=== PATIENT | male | born 1945 | race Caucasian/White ===

== ENCOUNTER → 2017-04-10 | Outpatient (CLI) | payer OTHER ==
[2016-02-20 17:14] VITALS: BP 160/73
--- NOTE | 2017-04-10 16:53 | VAS ---
HISTORY: Claudication Study: Bilateral ankle-brachial index Comparison: None Findings: Segmental pressure and waveform analysis of the right and left lower extremity were obtained from the common femoral artery to tibial vasculature before and after exercise. The right and left lower ext remities demonstrate multiphasic waveforms with normal segmental pressures. An MICHELA of 0.95-1.01 is o bserved on the right. MICHELA of 0.89-0.98 is observed on the left. No significant pressure drop was obs erved after exercise. IMPRESSION: Normal bilateral ABIs. Reported By:
== END ==
LOC: RAD 13:24
PROVIDERS: ATTEND Obstetrics & Gynecology Obstetrics
DX: I70.219 Atherosclerosis of native arteries of extremities with intermittent claudication, unspecified extremity (principal)
CPT/HCPCS: 93923

== ENCOUNTER 2021-03-04 14:05 | Observation (INO) ==
[2021-03-04 14:09] VITALS: BMI 24.5
[2021-03-04] MEDS ORDERED: ADACEL or BOOSTRIX TDaP VACCINE IM ONE ×2 (14:28→14:36)
--- NOTE | 2021-03-04 14:37 | DR.GENAD ---
HPI Time Seen Time Seen by Provider: 03/04/21 14:28 PCP Primary Care Physician: DOE HPI Comment HPI Comment: pt hit head on end table last night Complaint/Symptoms Chief Complaint:: PATIENT CAME TO ER REPORTS FALLING AT HOME, SOB, AND DIZZINESS X 5 WEEKS. PATIENT HAS BEEN SEEN BY PCP FOR COMPLAINT OF DIZZINESS AND GIVEN RX. COVID-19 Coronavirus risk:travel/contact w/high risk person: No Has patient experienced Coronavirus symptoms: Yes Coronavirus symptoms experienced: Shortness of Breath Nurses notes reviewed Nurses Notes Review: Yes Source History Provided: Patient and EMS Mode of Arrival Mode of Arrival: EMS Timing Onset of Chief Complaint: 02/01/21 PMH PMH Past Medical History: Yes Past Medical History: Anxiety and Diabetes Past Surgical History: Yes Family History History of Family Medical Conditions: Yes Family Medical History: Diabetes Mellitus Social History Do you use any recreational Drugs:: No Travel Risk Coronavirus risk:travel/contact w/high risk person: No Has patient experienced Coronavirus symptoms: Yes Coronavirus symptoms experienced: Shortness of Breath Infectious screening In the last 2 months have you had wt loss of >10#?: NO Have you had fever, night sweats or hemotysis?: No Have you traveled outside the country in the last 6 months?: No Isolation: Standard ROS Review of Systems Constitutional: No Symptoms Reported Eyes: No Symptoms Reported ENTM: No Symptoms Reported Respiratoy: See HPI Cardiovascular: No Symptoms Reported Gastrointestinal/Abdominal: No Symptoms Reported Genitourinary: No Symptoms Reported Neurological: Headache Musculoskeletal: See HPI and Other (small forehead lac) Integumentary: No Symptoms Reported Hematologic/Lymphatic: No Symptoms Reported Endocrine: No Symptoms Reported Psychiatric: No Symptoms Reported All Other Systems: Reviewed and Negative PE Vital Signs Vitals: Temperature 98.2 F Pulse Rate 64 Respiratory Rate 20 Blood Pressure 98/52 O2 Sat by Pulse Oximetry 98 General Limitations: No Limitations General Appearance: Alert and In No Apparent Distress Head Head Exam: Normal Inspection Eyes Eye exam: Normal Appearance ENT ENT Exam: Normal Exam and Other (1 cm linear lac on right side of forehead) External Ear Exam: Normal External Inspection TM/Canal Exam: Bilateral: Normal Nose Exam: Normal Nose Exam Mouth Exam: Normal Inspection Throat Exam: Normal Inspection Neck Neck Exam: Normal Inspection, Full ROM and Trachea Midline; negative Tenderness Chest Chest Inspection: Normal Inspection Respiratory Respiratory Exam: Normal Lung Sounds Bilat Respiratory Exam: Bilateral: Clear to Auscultation Cardiovascular Cardiovascular Exam: Regular Rate and Normal Rhythm Abdominal Exam Abdominal Exam: Normal Inspection, Normal Bowel Sounds and Soft Extremities Extremities Exam: Normal Inspection Back Back Exam: Normal Inspection Neurologic Neurological Exam: Alert and Oriented X3 Psychiatric Psychiatric Exam: Normal Affect and Normal Mood Skin Skin Exam: Warm, Dry, Intact and Normal Color MDM Differential Diagnosis Differential Diagnosis: CHF, COPD COVID, CAD COURSE Treatment Treatment: will give tetnus, steri -strips, dyspnea work-up Reevaluation 1st: Unchanged 2nd: Unchanged (CHF with edema, will give lasix, discussed with hospitalist will admit) ROR Labs Reviewed Laboratory Results Reviewed?: Yes Result Diagrams: 03/04/21 14:44 03/04/21 14:44 Laboratory: WBC 7.4 X10^3/uL (3.6-10.0) 03/04/21 14:44 RBC 4.07 X10^6/uL (4.7-6.0) L 03/04/21 14:44 Hgb 13.0 g/dL (13.5-18.0) L 03/04/21 14:44 Hct 37.5 % (42.0-54.0) L 03/04/21 14:44 MCV 92.1 fL (80.0-100.0) 03/04/21 14:44 MCH 31.8 pg (27.0-34.0) 03/04/21 14:44 MCHC 34.6 g/dL (33.0-35.0) 03/04/21 14:44 RDW 13.3 % (11.6-16.5) 03/04/21 14:44 Plt Count 100 X10^3/uL (150.0-450.0) L 03/04/21 14:44 MPV 9.1 fL (7.4-11.0) 03/04/21 14:44 Neut % (Auto) 57.6 % (42.0-75.0) 03/04/21 14:44 Lymph % (Auto) 30.9 % (21.0-51.0) 03/04/21 14:44 [place] % (Auto) 6.6 % (0.0-13.0) 03/04/21 14:44 Eos % (Auto) 4.0 % (0.9-2.9) H 03/04/21 14:44 Baso % (Auto) 0.9 % (0.2-1.0) 03/04/21 14:44 Neut # (Auto) 4.3 x10^3/uL (2.2-4.8) 03/04/21 14:44 Lymph # (Auto) 2.3 X10^3/uL (1.3-2.9) 03/04/21 14:44 [place] # (Auto) 0.5 x10^3/uL (0.3-0.8) 03/04/21 14:44 Eos # (Auto) 0.3 x10^3/uL (0.0-0.2) H 03/04/21 14:44 Baso # (Auto) 0.1 X10^3/uL (0.0-0.1) 03/04/21 14:44 Absolute Nucleated RBC 0.1 /100WBC 03/04/21 14:44 PT 15.5 SECONDS (11.8-14.3) 03/04/21 14:44 INR Target Range - 03/04/21 14:44 INR 1.30 (0.8-1.3) 03/04/21 14:44 D-Dimer 0.60 ug/ml (0.0-0.57) H* 03/04/21 14:44 Sodium 145 mmol/L (136-145) 03/04/21 14:44 Corrected Sodium TNP 03/04/21 14:44 Potassium 4.1 mmol/L (3.5-5.1) 03/04/21 14:44 Chloride 113 mmol/L (98-107) H 03/04/21 14:44 Carbon Dioxide 25.4 mmol/L (21-32) 03/04/21 14:44 BUN 34 mg/dL (7-18) H 03/04/21 14:44 Creatinine 1.72 mg/dL (0.70-1.30) H 03/04/21 14:44 Est GFR (MDRD) Af Amer 50 (>60) L 03/04/21 14:44 Est GFR (MDRD) Non-Af 41 (>60) L 03/04/21 14:44 Glucose 99 mg/dL (65-99) 03/04/21 14:44 Calcium 8.1 mg/dL (8.5-10.1) L 03/04/21 14:44 Corrected Calcium 8.7 mg/dL (8.5-10.1) 03/04/21 14:44 Total Bilirubin 0.40 mg/dL (0.2-1.0) 03/04/21 14:44 AST 11 Units/L (15-37) L 03/04/21 14:44 ALT 15 Units/L (12-78) 03/04/21 14:44 Alkaline Phosphatase 67 Units/L (46-116) 03/04/21 14:44 Creatine Kinase 46 Units/L (39-308) 03/04/21 14:44 CK-MB (CK-2) 1.0 ng/mL (0-4.0) 03/04/21 14:44 CK/CKMB % Calc 2.2 % (<4) 03/04/21 14:44 Troponin I 0.05 ng/mL (0-1.5) 03/04/21 14:44 B-Natriuretic Peptide 665 pg/mL (0-79) H* 03/04/21 14:44 Total Protein 6.1 g/dL (6.4-8.2) L 03/04/21 14:44 Albumin 3.2 g/dL (3.4-5.0) L 03/04/21 14:44 Globulin 2.9 g/dL (2.5-4.5) 03/04/21 14:44 Albumin/Globulin Ratio 1.1 Ratio (1.1-2.1) 03/04/21 14:44 SARS CoV-2 RNA Rapid RICHARD Negative (NEGATIVE) 03/04/21 15:08 XRAY XRAY Interpreted by: Radiologist X-ray Results: CHF and edema, neg COVID, essentially normal d-dimer for age, CHF with pulmonary edema EKG Rate: 65 (paced ventricular paced rhythm, wide QRS) Opioid Opioid Risk Tool Age (Ye box if 16-45): No History of Preadolescent Sexual Abuse: No Total: 0 Total Score Risk Category: Low Risk Copyright: [facility] predicting aberrant behaviors Diagnosis Discharge Problem: Pulmonary edema cardiac cause, Acute dyspnea CHF (congestive heart failure) Qualifiers: Heart failure type: unspecified Heart failure chronicity: acute on chronic Qualified Code(s): I50.9 - Heart failure, unspecified Fall Qualifiers: Encounter type: initial encounter Qualified Code(s): W19.XXXA - Unspecified fall, initial encounter Forehead laceration Qualifiers: Encounter type: initial encounter Qualified Code(s): S01.81XA - Laceration without foreign body of other part of head, initial encounter Head injury Qualifiers: Encounter type: initial encounter Qualified Code(s): S09.90XA - Unspecified injury of head, initial encounter
[2021-03-04 14:55] LABS: BASOPHILS # (AUTO) 0.1 X10^3/uL (0.0-0.1); BASOPHILS % (AUTO) 0.9 % (0.2-1.0); EOSINOPHILS # (AUTO) 0.3 x10^3/uL (0.0-0.2); HEMATOCRIT 37.5 % (42.0-54.0); LYMPHOCYTES # (AUTO) 2.3 X10^3/uL (1.3-2.9); LYMPHOCYTES % (AUTO) 30.9 % (21.0-51.0); MEAN CORPUSCULAR HEMOGLOBIN 31.8 pg (27.0-34.0); MEAN CORPUSCULAR HGB CONC 34.6 g/dL (33.0-35.0); MEAN CORPUSCULAR VOLUME 92.1 fL (80.0-100.0); MEAN PLATELET VOLUME 9.1 fL (7.4-11.0); MONOCYTES # (AUTO) 0.5 x10^3/uL (0.3-0.8); MONOCYTES % (AUTO) 6.6 % (0.0-13.0); NEUTROPHILS # (AUTO) 4.3 x10^3/uL (2.2-4.8); NEUTROPHILS % (AUTO) 57.6 % (42.0-75.0); PLATELET COUNT 100 X10^3/uL (150.0-450.0); RED BLOOD COUNT 4.07 X10^6/uL (4.7-6.0); RED CELL DISTRIBUTION WIDTH 13.3 % (11.6-16.5); WHITE BLOOD COUNT 7.4 X10^3/uL (3.6-10.0)
--- NOTE | 2021-03-04 15:14 | RAD ---
EXAM: CHEST X-RAYHISTORY: Shortness of breath.TECHNIQUE: AP chest x-ray dated March 04, 2021 at 2:48 PM.COMPARISON: None available.FINDINGS:There is a left anterior chest wall subclavian cardiac pacer with intact pacer wires to the right atrium and right ventricle.There is evidence for cardiomegaly. The pulmonary vascularity and interstitial markings are mildly prominent, in keeping with minimal CHF or volume overload in the appropriate clinical setting.There is no gross focal lung consolidation, pleural effusion, or pneumothorax seen. The visualized bony structures are within normal limits.IMPRESSION:1. Findings in keeping with minimal CHF or volume overload in the appropriate clinical setting.2. Recommend clinical correlation and appropriate follow-up CXR evaluation to assess interval change as clinically warranted.Electronically signed by: Soren Lazcano (Mar 04, 2021 15:13:30)
--- NOTE | 2021-03-04 15:14 | CT ---
HISTORYDIZZY AND FALLING[Altered mental status]Noncontrast head CT examination.Comparison: [None].Technique:Multiple axial images of the brain were obtained from the skull base to the vertex without administration of IV contrast.Findings: There is moderate sulcal and cisternal prominence as well as atherosclerotic change in the proximal intracranial carotid and vertebral arteries, which is not out of proportion to the patient's stated age. There is diffuse CT density alteration seen in the periventricular white matter of the high and mid-convexity, which is likely in the setting of small vessel disease and not out of proportion to the patient's stated age. There is [mild bilateral ex vacuo] ventricular dilatation without evidence for hydrocephalus or herniation syndrome. No midline shift is evident. No acute intraparenchymal hemorrhage or mass can be identified. If there remains a strong concern for any intra-cranial neoplasm, then follow-up with CT or MR imaging of the brain would be more sensitive to exclude any intra-cranial mass lesion. No extra-axial fluid collections are seen. No alteration in the attenuation of the brain parenchyma can be identified to suggest acute or subacute ischemic change. However, if clinical symptoms are concerning for an acute CVA, then follow-up MRI with DWI sequencing is recommended. The extracranial structures show diffuse mucoperiosteal thickening and sinus disease seen throughout the ethmoid and maxillary sinuses as well as the sphenoid sinuses.IMPRESSION:1. No acute intracranial process or bleed identified.However, if the patients symptoms are clinically & neurologically concerning for an acute ischemic event, then MR imaging of the brain with DWI sequencing could be considered to exclude an acute CVA (based on this patient? s clinical presentation and the neurological assessment).2. Age-appropriate intra-cranial changes of advancing age.3. CT changes of pansinusitis observed, possibly chronic. Please correlate.Electronically signed by: MJ HA III (Mar 04, 2021 15:13:11)
[2021-03-04 15:15] LABS: ALANINE AMINOTRANSFERASE 15 Units/L (12-78); ALBUMIN 3.2 g/dL (3.4-5.0); ALKALINE PHOSPHATASE 67 Units/L (46-116); ASPARTATE AMINO TRANSFERASE 11 Units/L (15-37); BLOOD UREA NITROGEN 34 mg/dL (7-18); CALCIUM 8.1 mg/dL (8.5-10.1); CARBON DIOXIDE 25.4 mmol/L (21-32); CHLORIDE 113 mmol/L (98-107); CKMB % 2.2 % (<4); COR CA(FOR HYPOALB) 8.7 mg/dL (8.5-10.1); CREATINE KINASE 46 Units/L (39-308); CREATININE 1.72 mg/dL (0.70-1.30); SODIUM 145 mmol/L (136-145); TOTAL PROTEIN 6.1 g/dL (6.4-8.2); TROPONIN I 0.05 ng/mL (0-1.5); eGFR NON BLACK RACES 41 (>60)
[2021-03-04] MEDS ORDERED: LASIX IVP ONE ×2 (15:53→16:35)
[2021-03-04] MEDS: SNACK - Diabetic Appropriate PO SCH (20:30)
[2021-03-04] MEDS: HumuLIN R SUBCUT SCH ×2 (21:00→22:46)
[2021-03-05 07:23] LABS: BASOPHILS # (AUTO) 0.1 X10^3/uL (0.0-0.1); EOSINOPHILS # (AUTO) 0.3 x10^3/uL (0.0-0.2); EOSINOPHILS % (AUTO) 4.5 % (0.9-2.9); HEMATOCRIT 40.2 % (42.0-54.0); HEMOGLOBIN 13.9 g/dL (13.5-18.0); LYMPHOCYTES % (AUTO) 27.5 % (21.0-51.0); MEAN CORPUSCULAR HEMOGLOBIN 31.8 pg (27.0-34.0); MEAN CORPUSCULAR HGB CONC 34.7 g/dL (33.0-35.0); MEAN CORPUSCULAR VOLUME 91.8 fL (80.0-100.0); MEAN PLATELET VOLUME 9.4 fL (7.4-11.0); MONOCYTES # (AUTO) 0.4 x10^3/uL (0.3-0.8); MONOCYTES % (AUTO) 5.9 % (0.0-13.0); NEUTROPHILS # (AUTO) 4.4 x10^3/uL (2.2-4.8); NEUTROPHILS % (AUTO) 61.1 % (42.0-75.0); PLATELET COUNT 93 X10^3/uL (150.0-450.0); RED BLOOD COUNT 4.38 X10^6/uL (4.7-6.0); RED CELL DISTRIBUTION WIDTH 13.7 % (11.6-16.5); WHITE BLOOD COUNT 7.2 X10^3/uL (3.6-10.0)
[2021-03-05] MEDS: LASIX IVP SCH (10:09)
[2021-03-05] MEDS ORDERED: HumuLIN R SUBCUT PRN (12:10)
[2021-03-05 13:19] LABS: BLOOD UREA NITROGEN 33 mg/dL (7-18); CALCIUM 8.4 mg/dL (8.5-10.1); CARBON DIOXIDE 21.3 mmol/L (21-32); CHLORIDE 111 mmol/L (98-107); COR NA(FOR HYPERGLY) 147 mmol/L (136-145); CREATININE 1.42 mg/dL (0.70-1.30); SODIUM 146 mmol/L (136-145); eGFR NON BLACK RACES 52 (>60)
--- NOTE | 2021-03-05 13:19 | DR.H&P ---
H&P - History & Physical for Day of: H&P Date: 03/04/21 - Chief Complaint Chief Complaint: SOB, FREQUENT FALLS, DIZZINESS - History of Present Illness History of Present Illness: IS A 75 YEAR OLD PATIENT OF OURS. HE PRESENTED TO THE EMERGENCY ROOM WITH COMPLAINTS OF FALLING AT HOME, SHORTNESS OF BREATH, AND DIZZINESS. PATIENT REPORTS THAT HIS SYMPTOMS STARTED ABOUT 5 WEEKS AGO AND HAVE PROGRESSIVELY GOTTEN WORSE. HE HAS BEEN TAKING MECLIZINE AT HOME WITHOUT IMPROVEMENT IN SYMPTOMS. HE DOES ADMIT TO HITTING HIS HEAD WHEN FALLING. PATIENT IS NOTED TO HAVE A SMALL 1CM LINEAR LACERATION TO THE RIGHT SIDE OF HIS FOREHEAD. STERI-STRIPS WERE APPLIED IN THE ER. HE HAS A PMH OF ANXIETY, DIABETES, BPH, HYPOTHYROIDISM, AND DEPRESSION. ON ARRIVAL TO THE HOSPITAL, VITALS WERE 98.2-65-20-99%-111/59. LABS WERE OBTAINED. ABNORMAL LAB VALUES INCLUDE THE FOLLOWING: RBC 4.07, HGB 13.0, HCT 37.5, D-DIMER 0.60, CHLORIDE 113, BUN 34, CREATININE 1.72, CALCIUM 8.1, AST 11, BNP 665, TOTAL PROTEIN 6.1, ALBUMIN 3.2. CARDIAC ENZYMES WERE WITHIN NORMAL LIMITS. COVID-[address] WAS OBTAINED AND REVEALED: 1. No acute intracranial process or bleed identified. However, if the patients symptoms are clinically & neurologically concerning for an acute ischemic event, then MR imaging of the brain with DWI sequencing could be considered to exclude an acute CVA. 2. Age-appropriate intra-cranial changes of advancing age. 3. CT changes of pansinusitis observed, possibly chronic. A CHEST XRAY WAS OBTAINED AND REVEALED: 1. Findings in keeping with minimal CHF or volume overload in the appropriate clinical setting. 2. Recommend clinical correlation and appropriate follow-up CXR evaluation to assess interval change as clinically warranted. AN EKG WAS OBTAINED AND REVEALED: VENTRICULAR PACED RHYTHM WITH HR 65. HE WAS GIVEN LASIX 40MG IV X 1 DOSE AND A TETANUS VACCINE IN THE ER. HE WAS ADMITTED TO THE HOSPTIAL FOR FURTHER EVALUATION AND TREATMENT OF CHF, PULMONARY EDEMA, DYSPNEA, AND FALLS. HE WAS STARTED ON LASIX 40MG IV DAILY, HUMULIN R SLIDING SCALE, OTBS ACHS, SINGULAIR 10MG PO HS, AND HIS HOME MEDICATIONS OF FLUOXETINE, SYNTHROID, FLOMAX, AND VALIUM WERE RESUMED. OTHERWISE, WE PLAN TO FOLLOW UP WITH AM LABS AND CONTINUE TO MONITOR. TIME SPENT ON CLINICAL ASSESSMENT, REVIEWING LABS AND IMAGING, DECISION MAKING, AND DOCUMENTATION GREATER THAN 75 MINUTES. - Past Medical History Past Medical History: Anxiety, Depression, Diabetes, Hypothyroidism - Past Surgical History Surgical History: Other - Family History Family Medical History: Diabetes Mellitus, [place] - Social History Does patient currently use any type of tobacco product: No Have you used tobacco products in the last 12 months: No Type of Tobacco Use: Cigarettes How many years tobacco product used: 50 Does any household member use tobacco: No Alcohol Use: None Drug Use: None - Medications Home Medications: No Known Drug Allergies Allergy (Verified 03/04/21 16:55) CONTINUE taking the following medications diazepam [Valium] 10 mg PO DAILY 03/05/21 [History] fluoxetine 20 mg PO DAILY 03/05/21 [History] ibuprofen [IBU] 800 mg PO TID PRN 03/05/21 [History] levothyroxine [Synthroid] 50 mcg PO DAILY 03/05/21 [History] meclizine 25 mg PO TID 03/05/21 [History] tamsulosin [Flomax] 0.4 mg PO DAILY 03/05/21 [History] - Review of Systems Constitutional: Weakness Eyes: No Symptoms Reported ENT: No Symptoms Reported Respiratory: See HPI, Shortness of Breath Cardiovascular: Light Headedness Gastrointestinal: No Symptoms Reported Genitourinary: No Symptoms Reported Musculoskeletal: No Symptoms Reported Skin: Wound (RIGHT SIDE FOREHEAD LACERATION ) Neurological: Weakness - Physical Exam Vital Signs: Temperature 98.3 F Pulse Rate [Left] 65 Pulse Rate 65 Respiratory Rate 18 Blood Pressure [Right Arm] 119/59 Blood Pressure [Left Arm] 105/54 Blood Pressure 98/52 O2 Sat by Pulse Oximetry 96 Oriented: Normal Eyes: Normal Ear: Normal Nose: Normal Throat: Normal Respiratory: Diminished Throughout Cardiovascular: Normal : Normal Auscultation: Bowel Sounds: Normal Palpation: Normal Tenderness: Normal Skin: Wound (RIGHT SIDED FOREHEAD 1CM LACERATION ) Musculoskeletal: Normal Psychiatric: Normal Mood Description: Calm Affect: Normal Speech Pattern: Clear - Assessment/Plan (1) CHF (congestive heart failure) Qualifiers: Heart failure type: unspecified Heart failure chronicity: acute on chronic Qualified Code(s): I50.9 - Heart failure, unspecified Status: Acute Plan: ADMIT, SUPPLEMENTAL OXYGEN, LASIX 40MG IV DAILY, HUMULIN R SLIDING SCALE, OTBS ACHS, SINGULAIR 10MG PO HS, AND HIS HOME MEDICATIONS OF FLUOXETINE, SYNTHROID, FLOMAX, AND VALIUM WERE RESUMED. (2) Pulmonary edema cardiac cause Status: Acute (3) Acute dyspnea Status: Acute (4) Fall Qualifiers: Encounter type: initial encounter Qualified Code(s): W19.XXXA - Unspecified fall, initial encounter Status: Acute (5) Forehead laceration Qualifiers: Encounter type: initial encounter Qualified Code(s): S01.81XA - Laceration without foreign body of other part of head, initial encounter Status: Acute - Allergies Allergies/Adverse Reactions: Allergies Allergy/AdvReac Type Severity Reaction Status Date / Time No Known Drug Allergies Allergy Verified 03/04/21 16:55
[2021-03-05] MEDS: SNACK - Diabetic Appropriate PO SCH (20:47)
[2021-03-05] MEDS ORDERED: SINGULAIR TAB 10 MG PO SCH (21:00)
--- NOTE | 2021-03-06 09:30 | RAD ---
HISTORYSOBSTUDYCHEST x-ray, 1 VIEWCOMPARISONX-ray 03/04/2021FINDINGSThe trachea is midline. The cardiac silhouette is normal in size. Pacemaker leads are unchanged in position.Lungs appear clear. No pneumothorax or pleural effusion is seen.No acute bony abnormality is seen.IMPRESSIONResolution of suspected CHF.Electronically signed by: Alfonso Camacho (Mar 06, 2021 09:28:08)
[2021-03-06 09:43] LABS: BASOPHILS # (AUTO) 0.1 X10^3/uL (0.0-0.1); BASOPHILS % (AUTO) 1.1 % (0.2-1.0); EOSINOPHILS # (AUTO) 0.2 x10^3/uL (0.0-0.2); EOSINOPHILS % (AUTO) 2.8 % (0.9-2.9); HEMOGLOBIN 14.9 g/dL (13.5-18.0); LYMPHOCYTES # (AUTO) 1.8 X10^3/uL (1.3-2.9); LYMPHOCYTES % (AUTO) 23.3 % (21.0-51.0); MEAN CORPUSCULAR HEMOGLOBIN 31.8 pg (27.0-34.0); MEAN CORPUSCULAR HGB CONC 34.6 g/dL (33.0-35.0); MEAN CORPUSCULAR VOLUME 91.8 fL (80.0-100.0); MEAN PLATELET VOLUME 9.4 fL (7.4-11.0); MONOCYTES # (AUTO) 0.4 x10^3/uL (0.3-0.8); MONOCYTES % (AUTO) 4.6 % (0.0-13.0); NEUTROPHILS # (AUTO) 5.3 x10^3/uL (2.2-4.8); NEUTROPHILS % (AUTO) 68.2 % (42.0-75.0); PLATELET COUNT 106 X10^3/uL (150.0-450.0); RED BLOOD COUNT 4.68 X10^6/uL (4.7-6.0); RED CELL DISTRIBUTION WIDTH 13.6 % (11.6-16.5); WHITE BLOOD COUNT 7.7 X10^3/uL (3.6-10.0)
[2021-03-06] MEDS: LASIX IVP SCH (10:08)
[2021-03-06 10:15] LABS: ALANINE AMINOTRANSFERASE 13 Units/L (12-78); ALBUMIN 3.4 g/dL (3.4-5.0); ALKALINE PHOSPHATASE 75 Units/L (46-116); ASPARTATE AMINO TRANSFERASE 10 Units/L (15-37); BLOOD UREA NITROGEN 38 mg/dL (7-18); CALCIUM 8.7 mg/dL (8.5-10.1); CHLORIDE 110 mmol/L (98-107); COR NA(FOR HYPERGLY) 146 mmol/L (136-145); CREATININE 1.33 mg/dL (0.70-1.30); SODIUM 145 mmol/L (136-145); TOTAL PROTEIN 6.7 g/dL (6.4-8.2); eGFR NON BLACK RACES 56 (>60)
--- NOTE | 2021-03-06 10:30 | PCM.PROG ---
Progress Note - Progress Note for Day of Date of Exam: 03/05/21 - Subjective Subjective: WAS ADMITTED FOR TREATMENT OF CHF, PULMONARY EDEMA, ACUTE DYSPNEA, FALL, AND FOREHEAD LACERATION. TODAY, HE IS ALERT AND ORIENTED, LYING IN BED ON MORNING ROUNDS. HE CONTINUES WITH COMPLAINTS OF SHORTNESS OF BREATH THIS MORNING. IT IS WORSE ON EXERTION. HE DENIES DIZZINESS AT THIS TIME. ON EXAMINATION, HEART IS REGULAR IN RATE AND RHYTHM. BILATERAL LUNGS ARE NOTED WITH DIMINISHED LUNG SOUNDS THROUGHOUT. ABDOMEN IS ROUND, SOFT, AND NON-TENDER WITH NORMAL BOWEL SOUNDS NOTED IN ALL QUADRANTS. HIS VITALS THIS MORNING ARE: 98.4-71-18-99%-117/67. LABS WERE OBTAINED. ABNORMAL LAB VALUES INCLUDE THE FOLLOWING: RBC 4.38, HCT 40.2, PLT COUNT 93, SODIUM 146, CHLORIDE 111, BUN 33, CREATININE 1.42, GLUCOSE 127, CALCIUM 8.4. HE IS CURRENTLY RECEIVING LASIX 40MG IV DAILY, HUMULIN R SLIDING SCALE, OTBS ACHS, SINGULAIR 10MG PO HS, AND HIS HOME MEDICATIONS OF FLUOXETINE, SYNTHROID, FLOMAX, AND VALIUM WERE RESUMED. WE WILL CONTINUE WITH CURRENT PLAN OF CARE TODAY. OTHERWISE, WE PLAN TO FOLLOW UP WITH AM LABS AND CHEST XRAY AND CONTINUE TO MONITOR. TIME SPENT ON CLINICAL ASSESSMENT, REVIEWING LABS AND IMAGING, DECISION MAKING, AND DOCUMENTATION GREATER THAN 45 MINUTES. - Past Medical Family Social History Past Med/Fam/Surg Hx: No changes since H&P Allergies: Allergies No Known Drug Allergies Allergy (Verified 03/04/21 16:55) - Review of Systems ROS: No change since H&P - Vital Signs and I&O's Vital Signs: Temperature 97.8 F Pulse Rate [Left] 66 Pulse Rate 63 Respiratory Rate 18 Blood Pressure [Right Arm] 99/62 Blood Pressure [Left Arm] 105/54 Blood Pressure 98/52 O2 Sat by Pulse Oximetry 95 Intake and Output: Intake & Output 03/03/21 03/04/21 03/05/21 03/06/21 11:59 11:59 11:59 11:59 Intake Total 350 / 350 630 / 630 Output Total 700 / 700 1550 / 1550 Balance -350 / -350 -920 / -920 - Physical Exam Oriented: Normal Eyes: Normal Ear: Normal Nose: Normal Throat: Normal Respiratory: Generalized, Diminished Cardiovascular: Normal : Normal Auscultation: Bowel Sounds: Normal Palpation: Normal Tenderness: Normal Skin: Wound (RIGHT SIDED FOREHEAD 1CM LACERATION ) Musculoskeletal: Normal Psychiatric: Normal Mood Description: Calm Affect: Normal Speech Pattern: Clear, Appropriate - Laboratory and Diagnostics Result Diagrams: 03/06/21 09:05 03/06/21 09:05 Labs: Laboratory WBC 7.7 X10^3/uL (3.6-10.0) 03/06/21 09:05 RBC 4.68 X10^6/uL (4.7-6.0) L 03/06/21 09:05 Hgb 14.9 g/dL (13.5-18.0) 03/06/21 09:05 Hct 43.0 % (42.0-54.0) 03/06/21 09:05 MCV 91.8 fL (80.0-100.0) 03/06/21 09:05 MCH 31.8 pg (27.0-34.0) 03/06/21 09:05 MCHC 34.6 g/dL (33.0-35.0) 03/06/21 09:05 RDW 13.6 % (11.6-16.5) 03/06/21 09:05 Plt Count 106 X10^3/uL (150.0-450.0) L 03/06/21 09:05 MPV 9.4 fL (7.4-11.0) 03/06/21 09:05 Neut % (Auto) 68.2 % (42.0-75.0) 03/06/21 09:05 Lymph % (Auto) 23.3 % (21.0-51.0) 03/06/21 09:05 [place] % (Auto) 4.6 % (0.0-13.0) 03/06/21 09:05 Eos % (Auto) 2.8 % (0.9-2.9) 03/06/21 09:05 Baso % (Auto) 1.1 % (0.2-1.0) H 03/06/21 09:05 Neut # (Auto) 5.3 x10^3/uL (2.2-4.8) H 03/06/21 09:05 Lymph # (Auto) 1.8 X10^3/uL (1.3-2.9) 03/06/21 09:05 [place] # (Auto) 0.4 x10^3/uL (0.3-0.8) 03/06/21 09:05 Eos # (Auto) 0.2 x10^3/uL (0.0-0.2) 03/06/21 09:05 Baso # (Auto) 0.1 X10^3/uL (0.0-0.1) 03/06/21 09:05 Absolute Nucleated RBC 0.3 /100WBC 03/06/21 09:05 PT 15.5 SECONDS (11.8-14.3) 03/04/21 14:44 INR Target Range - 03/04/21 14:44 INR 1.30 (0.8-1.3) 03/04/21 14:44 D-Dimer 0.60 ug/ml (0.0-0.57) H* 03/04/21 14:44 Sodium 145 mmol/L (136-145) 03/06/21 09:05 Corrected Sodium 146 mmol/L (136-145) H 03/06/21 09:05 Potassium 3.6 mmol/L (3.5-5.1) 03/06/21 09:05 Chloride 110 mmol/L (98-107) H 03/06/21 09:05 Carbon Dioxide 26.0 mmol/L (21-32) 03/06/21 09:05 BUN 38 mg/dL (7-18) H 03/06/21 09:05 Creatinine 1.33 mg/dL (0.70-1.30) H 03/06/21 09:05 Est GFR (MDRD) Af Amer > 60 (>60) 03/06/21 09:05 Est GFR (MDRD) Non-Af 56 (>60) L 03/06/21 09:05 Glucose 156 mg/dL (65-99) H 03/06/21 09:05 POC Glucose (mg/dL) 130 mg/dL (65-99) H 03/06/21 05:47 Calcium 8.7 mg/dL (8.5-10.1) 03/06/21 09:05 Corrected Calcium TNP 03/06/21 09:05 Total Bilirubin 0.40 mg/dL (0.2-1.0) 03/06/21 09:05 AST 10 Units/L (15-37) L 03/06/21 09:05 ALT 13 Units/L (12-78) 03/06/21 09:05 Alkaline Phosphatase 75 Units/L (46-116) 03/06/21 09:05 Creatine Kinase 46 Units/L (39-308) 03/04/21 14:44 CK-MB (CK-2) 1.0 ng/mL (0-4.0) 03/04/21 14:44 CK/CKMB % Calc 2.2 % (<4) 03/04/21 14:44 Troponin I 0.05 ng/mL (0-1.5) 03/04/21 14:44 B-Natriuretic Peptide 876 pg/mL (0-79) H* 03/06/21 09:05 Total Protein 6.7 g/dL (6.4-8.2) 03/06/21 09:05 Albumin 3.4 g/dL (3.4-5.0) 03/06/21 09:05 Globulin 3.3 g/dL (2.5-4.5) 03/06/21 09:05 Albumin/Globulin Ratio 1.0 Ratio (1.1-2.1) L 03/06/21 09:05 SARS CoV-2 RNA Rapid RICHARD Negative (NEGATIVE) 03/04/21 15:08 - Plan (1) CHF (congestive heart failure) Status: Acute Qualifiers: Heart failure type: unspecified Heart failure chronicity: acute on chronic Qualified Code(s): I50.9 - Heart failure, unspecified Plan: SUPPLEMENTAL OXYGEN, LASIX 40MG IV DAILY, HUMULIN R SLIDING SCALE, OTBS ACHS, SINGULAIR 10MG PO HS, AND HIS HOME MEDICATIONS OF FLUOXETINE, SYNTHROID, FLOMAX, AND VALIUM WERE RESUMED. (2) Pulmonary edema cardiac cause Status: Acute (3) Acute dyspnea Status: Acute (4) Fall Status: Acute Qualifiers: Encounter type: initial encounter Qualified Code(s): W19.XXXA - Unspecified fall, initial encounter (5) Forehead laceration Status: Acute Qualifiers: Encounter type: initial encounter Qualified Code(s): S01.81XA - Laceration without foreign body of other part of head, initial encounter
[2021-03-06] MEDS ORDERED: LOVENOX INJ 40 MG SYR SC SCH (11:00)
[2021-03-06 13:13] VITALS: BP 101/58
== END 2021-03-06 13:00 | disposition home health service (06) ==
LOC: MED/SURG 14:05 → ER 14:05 → MED/SURG 17:10
PROVIDERS: ADMIT Family Medicine; ATTEND Internal Medicine
DX: R29.6 Repeated falls; R42 Dizziness and giddiness; R06.02 Shortness of breath; Z23 Encounter for immunization; R94.31 Abnormal electrocardiogram [ECG] [EKG]; E11.65 Type 2 diabetes mellitus with hyperglycemia; W18.39XA Other fall on same level, initial encounter; R26.89 Other abnormalities of gait and mobility; I50.9 Heart failure, unspecified; S01.81XA Laceration without foreign body of other part of head, initial encounter